=== PATIENT | male | born 1960 | race Two or more races ===

== ENCOUNTER 2019-11-23 10:37 | Outpatient (CLI) | payer OTHER ==
[~2019-11-23 10:37] MED LIST: ORPH100T PO
== END 2019-11-23 11:01 | disposition home or self-care (01) ==
LOC: SONOGRAMA 10:37 → MAMO-SONO 10:45 → SONOGRAMA 11:01
PROVIDERS: ATTEND Physical Medicine & Rehabilitation
DX: M75.41 Impingement syndrome of right shoulder (principal); M75.81 Other shoulder lesions, right shoulder